=== PATIENT | female | born 1965 | race Caucasian/White ===

== ENCOUNTER → 2022-01-17 12:33 | Outpatient (CLI) | payer BC, SELFPAY ==
--- NOTE | ~2022-01-17 | XR_ITS ---
XR chest 2V DATE: 01/17/2022 12:56 INDICATION: Chronic cough TECHNIQUE: PA and lateral views COMPARISON: None FINDINGS: Normal heart size. No hilar or mediastinal enlargement. No pulmonary infiltrate or consolid ation, pleural effusion or pulmonary vascular congestion or pneumothorax. Minimal levoscoliosis of the thoracic spine. Status post cholecystectomy. IMPRESSION: No active cardiac pulmonary disease Status post cholecystectomy Reviewed, dictated and finalized at location B.
== END ==
PROVIDERS: PCP Emergency Medicine; Visit Provider Emergency Medicine
DX: R05.3 Chronic cough (principal); Z90.49 Acquired absence of other specified parts of digestive tract
CPT/HCPCS: 71046

== ENCOUNTER 2022-01-18 22:13 | Emergency (ER) | payer BC, SELFPAY ==
[2022-01-18 23:40] VITALS: BP 137/80; PULSE 106; RESP 18; TEMP 36.9; O2SAT 100
== END 2022-01-19 00:07 | disposition left against medical advice (07) ==
LOC: ANHED 01-19 00:15
PROVIDERS: PCP Emergency Medicine
DX: R53.83 Other fatigue (principal)
CPT/HCPCS: 99199